=== PATIENT | male | born 1985 | race African-American/Black ===

== ENCOUNTER 2018-04-29 22:03 | Emergency (ER) | payer OTHER ==
[2018-04-29] MEDS ORDERED: Morphine VIAL* 10 MG/ML 1 ML VIAL IV ONE (23:16)
[2018-04-29] MEDS ORDERED: NS 0.9% 1000 ML* 1,000 ML IV ONE (23:16)
[2018-04-29] MEDS ORDERED: Ondansetron ODT TAB* 4 MG PO ONE (23:16)
[2018-04-29 23:40] LABS: ABS Basophils 0.1 10^3/ul (0-0.2); ABS Eosinophils 0.2 10^3/ul (0-0.6); ABS Lymphocytes 1.7 10^3/ul (1.0-4.8); ABS Monocytes 0.9 10^3/ul (0-0.8); ABS Neutrophils 7.6 10^3/ul (1.5-7.7); ABS Nucleated RBC 0 10^3/ul; Eosinophil % 1.7 % (0-6); Hematocrit 40 % (42-52); Hemoglobin 13.7 g/dl (14.0-18.0); Lymphocyte % 16.5 % (25-47); Mean Corpuscular HGB Conc 35 g/dl (31-36); Mean Corpuscular Hemoglobin 29 pg (27-31); Mean Corpuscular Volume 84 fL (80-94); Mean Platelet Volume 9.1 um3 (7.4-10.4); Nucleated Red Blood Cells % 0; Platelet Count 172 10^3/ul (150-450); Red Blood Count 4.69 10^6/ul (4.00-5.40); Red Cell Distribution Width 14 % (10.5-15); White Blood Count 10.5 10^3/ul (3.5-10.8)
[2018-04-29 23:57] LABS: EGFR Non-African American 39.3 (>60)
--- NOTE | 2018-04-30 01:15 | RAD ---
EXAM: CT Abdomen and Pelvis Without Intravenous Contrast CLINICAL HISTORY: 33 years old, male; Abdominal pain; Flank; Left upper quadrant (luq); Additional info: Flank pain, HX of stones TECHNIQUE: Axial computed tomography images of the abdomen and pelvis without intravenous contrast. Coronal and sagittal reformatted images were created and reviewed. COMPARISON: No relevant prior studies available. FINDINGS: Lung bases: The imaged lung bases are clear. Heart: No cardiomegaly or pericardial effusion is noted. ABDOMEN: Liver: The liver is unremarkable. No liver lesion is seen. The contour of the liver is smooth. No hepatomegaly is noted. Gallbladder and bile ducts: No calcifications are seen in the gallbladder to suggest calculi. There is no gallbladder wall thickening, pericholecystic fluid, or pericholecystic inflammatory changes. No dilation of the intrahepatic or extrahepatic bile ducts is noted. Pancreas: Unremarkable. The main pancreatic duct is normal in caliber. Spleen: Unremarkable. No splenomegaly is noted. Adrenals: Normal. Kidneys and ureters: There is mild left hydroureteronephrosis with perinephric and periureteral stranding secondary to the recent excretion of a left ureteral calculus into the urinary bladder. There are 2 mm, 2 mm, 3 mm, and 3 mm calculi in the right renal collecting system. No stones are noted in the ureters. No renal lesion is identified. Stomach and bowel: There is no evidence for a bowel obstruction, diverticulosis, diverticulitis, colitis, pneumatosis intestinalis, intussusception, volvulus, or perforated viscus. PELVIS: Appendix: Normal. There is no evidence for appendicitis. Bladder: There is a 5 mm calculus in the left posterior inferior aspect of the urinary bladder (image 75 of the sagittal series). No bladder wall thickening or mass is noted in the distended urinary bladder. Reproductive: The prostate gland and seminal vesicles are unremarkable. ABDOMEN and PELVIS: Intraperitoneal space: No free air or free fluid. Bones/joints: The imaged bony structures are intact. There is no suspicious osteolytic or osteoblastic lesion. There are degenerative changes in the lumbar spine. Soft tissues: There is a small fat containing umbilical hernia. Vasculature: The abdominal aorta is normal in caliber. Lymph nodes: No lymphadenopathy. IMPRESSION: 1. Mild left hydroureteronephrosis secondary to the excretion of a 5 mm calculus into the urinary bladder. 2. Right nephrolithiasis.
--- NOTE | 2018-04-30 01:26 | ED ---
Abdominal Pain/Male - HPI Summary HPI Summary: Patient complains of left flank playing 1 week. Pain originally intermittent, is now constant for the past 2 days. Positive hematuria 2 days ago. History of kidney stones. Denies fever, cough, sore throat, CP, SOB, N/V/D, abdominal pain, pain with urination, change in BM. Medical history is asthma. Abdominal/ pelvic surgical history is none. - History of Current Complaint Chief Complaint: EDFlankPain Stated Complaint: FLANK PAIN Time Seen by Provider: 04/29/18 23:09 Hx Obtained From: Patient Onset/Duration: Gradual Onset Timing: Constant, Intermittent Severity Initially: Mild Severity Currently: Severe Pain Intensity: 10 Pain Scale Used: 0-10 Numeric Location: Flank Radiates: No Radiates to: Flank Character: Sharp Aggravating Factor(s): Nothing Alleviating Factor(s): Position Associated Signs And Symptoms: Positive: Urinary Symptoms - Allergies/Home Medications Allergies/Adverse Reactions: Allergies Allergy/AdvReac Type Severity Reaction Status Date / Time No Known Allergies Allergy Verified 04/29/18 22:13 Home Medications: Home Medications NK [No Home Medications Reported] 04/30/18 [History Confirmed 04/30/18] PMH/Surg Hx/FS Hx/Imm Hx Endocrine/Hematology History: Denies: Hx Anticoagulant Therapy History: Denies: Hx Dialysis Neurological History: Denies: Hx CVA Infectious Disease History: No Infectious Disease History: Denies: Traveled Outside the [place] in Last 30 Days - Social History Alcohol Use: None Substance Use Type: Reports: None Smoking Status (MU): Never Smoked Tobacco Review of Systems Constitutional: Negative Eyes: Negative ENT: Negative Cardiovascular: Negative Respiratory: Negative Gastrointestinal: Negative Positive: flank pain, hematuria Musculoskeletal: Negative Skin: Negative Neurological: Negative Psychological: Normal All Other Systems Reviewed And Are Negative: Yes Physical Exam - Summary Physical Exam Summary: Left CVA tenderness. No tenderness to palpation of abdomen. Triage Information Reviewed: Yes Vital Signs On Initial Exam: Initial Vitals Temp Pulse Resp BP Pulse Ox 98.8 F 62 18 123/80 99 04/29/18 22:10 04/29/18 22:10 04/29/18 22:10 04/29/18 22:10 04/29/18 22:10 Vital Signs Reviewed: Yes Appearance: Positive: Well-Appearing Skin: Positive: Warm Head/Face: Positive: Normal Head/Face Inspection Eyes: Positive: Normal Neck: Positive: Supple Respiratory/Lung Sounds: Positive: Clear to Auscultation Cardiovascular: Positive: Normal Abdomen Description: Positive: Nontender, CVA Tenderness (L) Musculoskeletal: Positive: Normal Neurological: Positive: Normal Psychiatric: Positive: Normal AVPU Assessment: Alert - Dwayne Coma Scale Best Eye Response: 4 - Spontaneous Best Motor Response: 6 - Obeys Commands Best Verbal Response: 5 - Oriented Coma Scale Total: 15 Diagnostics - Vital Signs Vital Signs Temp Pulse Resp BP Pulse Ox 04/30/18 00:19 54 97 04/30/18 00:17 53 117/73 97 04/30/18 00:08 59 98 04/29/18 23:48 57 129/68 96 04/29/18 23:47 56 96 04/29/18 23:31 18 04/29/18 22:10 98.8 F 62 18 123/80 99 - Laboratory Lab Results: Lab Results 04/29/18 04/29/18 Range/Units 23:30 23:30 WBC 10.5 (3.5-10.8) 10^3/ul RBC 4.69 (4.00-5.40) 10^6/ul Hgb 13.7 L (14.0-18.0) g/dl Hct 40 L (42-52) % MCV 84 (80-94) fL MCH 29 (27-31) pg MCHC 35 (31-36) g/dl RDW 14 (10.5-15) % Plt Count 172 (150-450) 10^3/ul MPV 9.1 (7.4-10.4) um3 Neut % (Auto) 72.6 (38-83) % Lymph % (Auto) 16.5 L (25-47) % [place] % (Auto) 8.4 H (0-7) % Eos % (Auto) 1.7 (0-6) % Baso % (Auto) 0.8 (0-2) % Absolute Neuts (auto) 7.6 (1.5-7.7) 10^3/ul Absolute Lymphs (auto) 1.7 (1.0-4.8) 10^3/ul Absolute Monos (auto) 0.9 H (0-0.8) 10^3/ul Absolute Eos (auto) 0.2 (0-0.6) 10^3/ul Absolute Basos (auto) 0.1 (0-0.2) 10^3/ul Absolute Nucleated RBC 0 10^3/ul Nucleated RBC % 0 Sodium 137 (135-145) mmol/L Potassium 3.7 (3.5-5.0) mmol/L Chloride 106 (101-111) mmol/L Carbon Dioxide 24 (22-32) mmol/L Anion Gap 7 (2-11) mmol/L BUN 15 (6-24) mg/dL Creatinine 1.96 H (0.67-1.17) mg/dL Est GFR ( Amer) 47.6 (>60) Est GFR (Non-Af Amer) 39.3 (>60) BUN/Creatinine Ratio 7.7 L (8-20) Glucose 105 H (70-100) mg/dL Calcium 9.6 (8.6-10.3) mg/dL Total Bilirubin 0.60 (0.2-1.0) mg/dL AST 23 (13-39) U/L ALT 13 (7-52) U/L Alkaline Phosphatase 83 (34-104) U/L C-Reactive Protein 4.69 (<8.01) mg/L Total Protein 6.9 (6.4-8.9) g/dL Albumin 4.5 (3.2-5.2) g/dL Globulin 2.4 (2-4) g/dL Albumin/Globulin Ratio 1.9 (1-3) Lipase 11 (11.0-82.0) U/L Result Diagrams: 04/29/18 23:30 04/29/18 23:30 Lab Statement: Any lab studies that have been ordered have been reviewed, and results considered in the medical decision making process. - CT ab/pel CT Interpretation: Positive (See Comments) - Mild left-no ureter nephrosis secondary to the excretion of a 5 mm calculus into the urinary bladder. Right nephrolithiasis Abdominal Pain Fem Course/Dx - Course Course Of Treatment: Patient complains of left flank playing 1 week. Pain originally intermittent, is now constant for the past 2 days. Positive hematuria 2 days ago. History of kidney stones. Denies fever, cough, sore throat, CP, SOB, N/V/D, abdominal pain, pain with urination, change in BM. Medical history is asthma. Abdominal/pelvic surgical history is none. Physical exam: Left CVA tenderness. No tenderness to palpation of abdomen. Vital signs within normal limits and stable. Elevated creatinine of 1.96 with no prior data to compare to. Patient received 1 L of fluids here in the ED. CT abdomen and pelvis without contrast positive for 5 mm kidney stone in bladder. Ibuprofen and strainer. - Diagnoses Provider Diagnoses: Kidney stone Discharge - Sign-Out/Discharge Documenting (check all that apply): Patient Departure - Discharge Plan Condition: Stable Disposition: HOME Patient Education Materials: Kidney Stones (ED), How to Strain Your Urine (ED) Referrals: Bea ALTAMIRANO,Radha Steward [Primary Care Provider] - Additional Instructions: Follow-up with urology Dr. Lewis if symptoms continue. Return to the ED for any new or worsening symptoms - Billing Disposition and Condition Condition: STABLE Disposition: Home
[2018-04-30 01:28] LABS: Urine Appearance Clear; Urine Blood 2+ (Negative); Urine Color Straw; Urine Ketones Negative (Negative); Urine Protein Negative (Negative); Urine Red Blood Cell Trace(0-2/hpf) (Absent); Urine Specific Gravity 1.004 (1.010-1.030); Urine Urobilinogen Negative (Negative); Urine White Blood Cell Absent (Absent)
[2018-04-30] MEDS ORDERED: HYDROcodone/ACETAMIN 5-325 MG* 1 TAB PO ONE (01:46)
[2018-04-30 02:01] VITALS: BP 112/66
== END 2018-04-30 02:23 | disposition home or self-care (01) ==
LOC: ED 22:03
DX: R10.84 Generalized abdominal pain (principal); N20.0 Calculus of kidney
CPT/HCPCS: 36415; 74176; 80053; 81003; 81015; 83690; 85025; 86140; 96374; 99283; A9270-GY; J2270